=== PATIENT | male | born 1955 | race Caucasian/White ===

== ENCOUNTER 2020-09-07 20:54 | Inpatient (IN) | payer OTHER ==
[~2020-09-07] VITALS: Ht 177.8 cm; Wt 126.4 kg
[2020-09-07 21:14] LABS: BASOPHILS ABSOLUTE AUTO 0.07 K/mm3 (0.00-0.23); BASOPHILS PERCENT AUTO 1 % (0-2); EOSINOPHILS ABSOLUTE AUTO 0.46 K/mm3 (0.00-0.68); EOSINOPHILS PERCENT AUTO 3 % (0-6); Hematocrit 42.6 % (37.0-53.0); Hemoglobin 13.9 g/dL (13.5-17.5); IMMATURE GRAN ABSOLUTE AUTO 0.06 K/mm3 (0.00-0.10); IMMATURE GRAN PERCENT AUTO 0 % (0-1); LYMPHOCYTES ABSOLUTE AUTO 1.42 K/mm3 (0.84-5.20); LYMPHOCYTES PERCENT AUTO 9 % (21-46); MONOCYTES ABSOLUTE AUTO 0.52 K/mm3 (0.16-1.47); MONOCYTES PERCENT AUTO 3 % (4-13); Mean Corpuscular HGB 29.1 pg (26.0-34.0); Mean Corpuscular HGB Conc 32.6 g/dL (31.5-36.5); Mean Corpuscular Volume 89 fL (80-100); NEUTROPHILS ABSOLUTE AUTO 12.55 K/mm3 (1.96-9.15); NEUTROPHILS PERCENT AUTO 83 % (41-73); Platelet Count 283 K/mm3 (150-400); RDW Coefficient Variation 14.3 % (11.7-14.2); RDW Standard Deviation 46.3 fL (35.1-46.3); Red Blood Cell Count 4.77 M/mm3 (4.30-5.90); White Blood Cell Count 15.08 K/mm3 (4.00-11.30)
[2020-09-07 21:33] LABS: Alanine Aminotransfer (ALT/SGP 39 U/L (12-78); Albumin, Blood 3.2 g/dL (3.4-5.0); Albumin/Globulin Ratio 0.6 (0.8-1.8); Alk Phos 138 U/L (50-136); Anion Gap 8 mmol/L (6-16); Aspartate Aminotrans (AST/SGOT 36 U/L (12-37); Bilirubin, Total 0.7 mg/dL (0.1-1.0); Blood Urea Nitrogen 16 mg/dL (8-24); Bun/Creatinine Ratio 17.8 (12.0-20.0); CO2, Blood 25 mmol/L (21-32); Calcium, Blood 9.1 mg/dL (8.5-10.1); Chloride, Blood 102 mmol/L (98-108); Glomerular Filtration Rate >60 (60-); Glucose, Blood 163 mg/dL (70-99); Potassium, Blood 4.5 mmol/L (3.5-5.5); Sodium, Blood 135 mmol/L (136-145); Total Protein, Blood 8.2 g/dL (6.4-8.2); Troponin I <0.015 ng/mL (0.000-0.040)
[2020-09-08 02:44] LABS: SARS-Cov-2 (COVID-19) PCR, MMC NEGATIVE (NEGATIVE)
[2020-09-08 04:34] LABS: BASOPHILS ABSOLUTE AUTO 0.03 K/mm3 (0.00-0.23); BASOPHILS PERCENT AUTO 0 % (0-2); EOSINOPHILS PERCENT AUTO 0 % (0-6); Hematocrit 43.7 % (37.0-53.0); Hemoglobin 14.3 g/dL (13.5-17.5); Mean Corpuscular HGB 29.5 pg (26.0-34.0); Mean Corpuscular HGB Conc 32.7 g/dL (31.5-36.5); Mean Corpuscular Volume 90 fL (80-100); Mean Platelet Volume 9.4 fL (9.1-12.4); Platelet Count 299 K/mm3 (150-400); RDW Coefficient Variation 14.4 % (11.7-14.2); RDW Standard Deviation 47.4 fL (35.1-46.3); Red Blood Cell Count 4.85 M/mm3 (4.30-5.90); White Blood Cell Count 13.16 K/mm3 (4.00-11.30)
[2020-09-08 04:37] LABS: IMMATURE GRAN ABSOLUTE AUTO 0.07 K/mm3 (0.00-0.10); IMMATURE GRAN PERCENT AUTO 1 % (0-1); LYMPHOCYTES ABSOLUTE AUTO 0.88 K/mm3 (0.84-5.20); LYMPHOCYTES PERCENT AUTO 7 % (21-46); MONOCYTES ABSOLUTE AUTO 0.07 K/mm3 (0.16-1.47); MONOCYTES PERCENT AUTO 1 % (4-13); NEUTROPHILS ABSOLUTE AUTO 12.11 K/mm3 (1.96-9.15); NEUTROPHILS PERCENT AUTO 92 % (41-73)
[2020-09-08 05:09] LABS: Anion Gap 9 mmol/L (6-16); Blood Urea Nitrogen 18 mg/dL (8-24); Bun/Creatinine Ratio 18.2 (12.0-20.0); CO2, Blood 25 mmol/L (21-32); Chloride, Blood 100 mmol/L (98-108); Creatinine, Blood 0.99 mg/dL (0.60-1.20); Glomerular Filtration Rate >60 (60-); Glucose, Blood 177 mg/dL (70-99); Potassium, Blood 4.2 mmol/L (3.5-5.5); Sodium, Blood 134 mmol/L (136-145)
--- NOTE | 2020-09-08 05:39 | NUR ---
SHIFT SUMMARY: ADMITTED TO FLOOR FOR CHF EXACERBATION. BNP WAS NORMAL RANGE BUT HE HAS HAD INCREASE IN SOB, EDEMA, PRODUCTIVE COUGH, WEAKNESS, ORTHOPENA FOR THE LAST MONTH. STATE HE HAS NO ENERGY TO EVEN GET UP AND DO THINGS AROUND HIS HOME. LOOSES HIS BREATH WITH TALKING. IF HE GOES TO THE BATHROOM ON RA HE DROPS TO 81%. 2-3 LITERS FOR RECOVERY WHICH TOOK HIM 2 MINUTES THEN TURNED HIM DOWN TO 2LITERS. SATS WERE 92-93%. SPUTUM WAS SENT TO LAB BUT HAS TO BE COLLECTED AGAIN DUE TO UPPER RESPIRTORY CONTAMINATION. COVID TEST NEGATIVE. SPUTUM WHICH THICK, SMALL AMOUNTS. EDEMA BILATERAL LEGS 2+.HTN ON ARRIVAL TO FLOOR DUE TO SOB WITH TACHYCARDIA. DID GIVE BP MEDICATION. IMPROVED WITH THIS AM VITALS. NORMALLY ON RA AT HOME. FLUTTER VALVE IN ROOM. WILL CONTINUE TO MONITOR. CALL LIGHT IN REACH.
--- NOTE | 2020-09-08 18:39 | NUR ---
PT REPORTS BREATHING IS GETTING EASIER. HE HAS BEEN OOB IN HIS CHAIR THIS SHIFT, TOLERATING IT WELL. NO ACUTE CHANGES. CALL LIGHT WITHIN REACH.
--- NOTE | 2020-09-09 04:13 | NUR ---
SHIFT SUMMARY PATIENT HAD NO ACUTE CHANGES OBSERVED. AXOX 3 AND SBA USING URINAL AT BEDSIDE. TAKES MEDICATION WHOLE WITH WATER. PIV REMAINS INTACT. PLANNING INTERN REPORTS SR 96. FLUID RESTRICTION 1,500. ON 2L O2 NC. VSS/AFEBRILE, DENIES PAIN, SOB, AND N/V. IMAGING IN WITH PORTABLE TAKING CHEST X-RAY. CALL LIGHT IN REACH. BED IN LOWEST POSITION. WILL CONTINUE TO MONITOR UNTIL DAY SHIFT NURSE ASSUMES CARE.
[2020-09-09 05:09] LABS: BASOPHILS ABSOLUTE AUTO 0.06 K/mm3 (0.00-0.23); BASOPHILS PERCENT AUTO 0 % (0-2); EOSINOPHILS ABSOLUTE AUTO 0.11 K/mm3 (0.00-0.68); EOSINOPHILS PERCENT AUTO 1 % (0-6); Hematocrit 42.2 % (37.0-53.0); Hemoglobin 13.4 g/dL (13.5-17.5); IMMATURE GRAN ABSOLUTE AUTO 0.08 K/mm3 (0.00-0.10); IMMATURE GRAN PERCENT AUTO 1 % (0-1); LYMPHOCYTES ABSOLUTE AUTO 3.63 K/mm3 (0.84-5.20); LYMPHOCYTES PERCENT AUTO 21 % (21-46); MONOCYTES ABSOLUTE AUTO 0.91 K/mm3 (0.16-1.47); MONOCYTES PERCENT AUTO 5 % (4-13); Mean Corpuscular HGB 28.7 pg (26.0-34.0); Mean Corpuscular HGB Conc 31.8 g/dL (31.5-36.5); Mean Corpuscular Volume 90 fL (80-100); Mean Platelet Volume 9.7 fL (9.1-12.4); NEUTROPHILS ABSOLUTE AUTO 12.15 K/mm3 (1.96-9.15); NEUTROPHILS PERCENT AUTO 72 % (41-73); Platelet Count 311 K/mm3 (150-400); RDW Coefficient Variation 14.6 % (11.7-14.2); RDW Standard Deviation 47.9 fL (35.1-46.3); Red Blood Cell Count 4.67 M/mm3 (4.30-5.90); White Blood Cell Count 16.94 K/mm3 (4.00-11.30)
[2020-09-09 05:52] LABS: Alanine Aminotransfer (ALT/SGP 29 U/L (12-78); Albumin, Blood 2.9 g/dL (3.4-5.0); Albumin/Globulin Ratio 0.6 (0.8-1.8); Alk Phos 105 U/L (50-136); Anion Gap 9 mmol/L (6-16); Aspartate Aminotrans (AST/SGOT 29 U/L (12-37); Bilirubin, Total 0.6 mg/dL (0.1-1.0); Blood Urea Nitrogen 28 mg/dL (8-24); Bun/Creatinine Ratio 25.2 (12.0-20.0); CO2, Blood 26 mmol/L (21-32); Calcium, Blood 8.6 mg/dL (8.5-10.1); Chloride, Blood 101 mmol/L (98-108); Creatinine, Blood 1.11 mg/dL (0.60-1.20); Globulin, Blood 4.8 g/dL (2.2-4.0); Glomerular Filtration Rate >60 (60-); Glucose, Blood 104 mg/dL (70-99); Magnesium, Blood 2.7 mg/dL (1.6-2.4); Sodium, Blood 136 mmol/L (136-145); Total Protein, Blood 7.7 g/dL (6.4-8.2)
--- NOTE | 2020-09-09 09:15 | NUR ---
Pt alert and oriented; pleasant and cooperative. Declines lovanox injection and stool softener, states no need. Other medications reviewed and given. Care plan reviewed with pt, he verbalizes understanding. No other concerns, pt states he is not in pain.
[2020-09-09] MEDS ORDERED: ASPI81CH PO (11:46)
[2020-09-09] MEDS ORDERED: Acetaminophen650 M1 PO (11:46)
[2020-09-09] MEDS ORDERED: ALBU90OI INH (11:46)
[2020-09-09] MEDS ORDERED: CEFU500T30 PO (11:47)
[2020-09-09] MEDS ORDERED: AZIT500 PO (11:47)
[2020-09-09] MEDS ORDERED: GUAI600T33 PO (11:48)
[2020-09-09] MEDS ORDERED: FURO20 PO (11:48)
[2020-09-09] MEDS ORDERED: DOCU100 PO (11:48)
[2020-09-09] MEDS ORDERED: Lisinopril2.5 MG PO (11:49)
[2020-09-09] MEDS ORDERED: METO25 PO (11:50)
[2020-09-09] MEDS ORDERED: SPIR25 PO (11:51)
[2020-09-09] MEDS ORDERED: LACT PO (11:52)
[2020-09-09] MEDS ORDERED: POTA10T PO (11:53)
--- NOTE | 2020-09-09 12:28 | NUR ---
DISCHARGED PATIENT HOME; RELEASED TO HIS BROTHER, LEFT IN PRIVATE AUTO. PT HAS MANY NEW MEDICATIONS; TEACHING PERFORMED. INSTRUCTED ON FINDING NEW PCP AND DISCUSSED CARDIAC PROVIDER. PT VERBALIZES UNDERSTANDING OF DISCHARGE INSTRUCTIONS.
== END 2020-09-09 12:22 | disposition home or self-care (01) | DRG 871 ==
LOC: ER 20:54 → MEDS 09-08 00:11
PROVIDERS: Family Medicine; Physician Assistant; ADMIT Internal Medicine
DX: A41.9 Sepsis, unspecified organism (principal); I50.33 Acute on chronic diastolic (congestive) heart failure; J18.9 Pneumonia, unspecified organism; Z68.43 Body mass index [BMI] 50.0-59.9, adult; J44.1 Chronic obstructive pulmonary disease with (acute) exacerbation; J44.0 Chronic obstructive pulmonary disease with (acute) lower respiratory infection; Z20.822 Contact with and (suspected) exposure to COVID-19; Z66 Do not resuscitate; Z87.891 Personal history of nicotine dependence; G47.00 Insomnia, unspecified; E66.01 Morbid (severe) obesity due to excess calories; G89.29 Other chronic pain
CPT/HCPCS: 36415; 71045; 71046; 80048; 80053; 83735; 83880; 84443; 84484; 85025; 93005; 93010; 93306; 94640; 96374; 96375; 99285-25; A9270; J0696; J1650; J1940; J2930; U0004

== ENCOUNTER → 2020-12-25 | Outpatient (CLI) | payer OTHER ==
[~2020-12-25] MED LIST: ALBU90OI INH; ASPI81CH PO; AZIT500 PO; Acetaminophen650 M1 PO; CEFU500T30 PO; DOCU100 PO; FURO20 PO; GUAI600T33 PO; LACT PO; Lisinopril2.5 MG PO; METO25 PO; POTA10T PO; SPIR25 PO
== END | disposition home or self-care (01) ==
LOC: LAB SHORT 16:41
DX: Z12.5 Encounter for screening for malignant neoplasm of prostate (principal); I50.9 Heart failure, unspecified; E66.9 Obesity, unspecified
CPT/HCPCS: 83036; 83880

== ENCOUNTER → 2020-12-26 | Outpatient (CLI) | payer OTHER ==
[2020-12-26 18:45] LABS: Alanine Aminotransfer (ALT/SGP 51 U/L (12-78); Albumin, Blood 3.2 g/dL (3.4-5.0); Albumin/Globulin Ratio 0.7 (0.8-1.8); Alk Phos 141 U/L (50-136); Anion Gap 8 mmol/L (6-16); Aspartate Aminotrans (AST/SGOT 51 U/L (12-37); Bilirubin, Total 0.7 mg/dL (0.1-1.0); Blood Urea Nitrogen 17 mg/dL (8-24); Bun/Creatinine Ratio 17.1 (12.0-20.0); CHOL/HDL RATIO 5.6; CO2, Blood 25 mmol/L (21-32); Chloride, Blood 106 mmol/L (98-108); Cholesterol 201 mg/dL (50-200); Creatinine, Blood 0.99 mg/dL (0.60-1.20); Globulin, Blood 4.4 g/dL (2.2-4.0); Glomerular Filtration Rate >60 (60-); Glucose, Blood 90 mg/dL (70-99); HDL Cholesterol 36 mg/dL (>39); LDL/HDL RATIO 3.3; Low Density Lipoprotein Chol 120 mg/dL (0-110); Potassium, Blood 5.3 mmol/L (3.5-5.5); Sodium, Blood 139 mmol/L (136-145); Total Protein, Blood 7.6 g/dL (6.4-8.2); Triglycerides 226 mg/dL (30-160); Very Low Density Lipoprot Chol 45 mg/dL (6-32)
== END ==
LOC: LAB SHORT 14:46 → LAB 14:46
PROVIDERS: Nurse Practitioner Family
DX: Z12.5 Encounter for screening for malignant neoplasm of prostate (principal); I50.9 Heart failure, unspecified; E66.9 Obesity, unspecified; Z79.82 Long term (current) use of aspirin
CPT/HCPCS: 80053; 80061; 83880; 84443; G0103